=== PATIENT | female | born 1965 | race Caucasian/White ===

== ENCOUNTER 2024-02-23 09:30 | Emergency (ER) | payer OTHER, SELFPAY ==
--- NOTE | 2024-02-23 10:42 | ED.GENMED ---
History of Present Illness
General
Chief Complaint: Abdominal Pain
Source: patient
Time Seen by Provider: 02/23/24 10:29
Travel History
Have you had any contact with someone who has COVID-19?: No
Do you have any symptoms of coronavirus? Fever > 100 degrees, chills, cough, shortness of breath, sore throat, loss of taste or smell, muscle aches, or headache?: No
History of Present Illness
History of Present Illness:
59-year-old female with past medical history of hypertension presenting to the emergency department for evaluation of left lower quadrant abdominal pain for about 3 weeks describing the sensation to be a dull cramping achy sensation with a feeling
of being bloated. Patient went to her [facility] who wanted the patient to obtain an ultrasound however patient was unable to schedule this until March at [place]. She contacted her GI physician who recommended that patient attempt a liquid diet which
she states she has done 2 days of a started to feel little worse which is what prompted her to come to the ER today. Has not had any fevers, chills, rigors, nausea, vomiting, bowel changes or urinary symptoms. She notes a history of IBS and has
been on a peppermint supplement and Bentyl but she states normally these would help in an IBS flare but it has not helped at all during these 3 weeks. Last colonoscopy around 4 years ago and patient believes she had diverticulosis but no polyps.
Social history noncontributory.
Past History
Past History
ED Past Medical History: HTN and Hypercholesterolemia
ED Past Surgical History: and Orthopedic
Social History
Tobacco: Non-smoker
Alcohol: Occasional
Drug: None
Personal:
Living: with family
Employment: Employed
Review of Systems
Review of Systems
All Other Systems: ROS reviewed and negative except as documented in HPI and ROS
Phy Exam
Physical Exam
Physical Exam:
GENERAL: Alert , in no apparent distress
EYE: clear conjunctiva b/l
HEAD: NCAT
ENT: o/p clr, mmm.
CARDIAC: Regular rate and rhythm .
LUNGS: Clear breath sounds bilaterally, no acute respiratory distress, no wheezes/rales/rhonchi
ABDOMEN: Soft, without focal tenderness, no r/g, no cvat, negative De La Garza sign, no tenderness at McBurney's point
NEUROLOGICAL: Alert and oriented
SKIN: Warm and dry, skin intact.
MUSCULOSKELETAL: well perfused.
PSYCH: Normal and appropriate interaction.
Scores
Heart Failure Risk
Heart Failure Risk Score: Not Applicable
Heart Score for Chest Pain Patients
STEMI patient?: Not applicable
Withdrawal Assessment of Alcohol
Withdrawal Assessment Completed?: Not applicable
Course
Orders/Labs/Results
Orders:
Orders
02/23/24 10:41
CT Abd/pelvis W Iv Cont Urgent
Comment:
Reason For Exam: left sided abd pain, hx diverticulosis
02/23/24 10:46
Ketorolac [Toradol] 30 mg IV NOW STA
02/23/24 11:33
Complete Blood Count/With Diff Urgent
Comprehensive Metabolic Panel Urgent
Lipase Urgent
Urinalysis Reflex To Culture Urgent
Date Specimen was Collected: 02/23/24
Time Specimen was Collected: 11:09
Urine Microscopic Reflex Cult Urgent
Abnormal Lab Results
02/23/24
11:33
RBC 4.09 L 10^6/uL
(4.20-5.40)
MCH 33.3 H pg
(27.0-31.0)
Glucose 100 H mg/dl
(70-99)
Urine Ketones Trace A
(Negative)
Ur Occult Blood Reflex Trace A
(Negative)
02/23/24 11:33
02/23/24 11:33
Vital Signs
Initial and Last Documented VS:
Initial Vital Signs
Temp Pulse Resp Pulse Ox
99.5 F 84 16 100
02/23/24 09:32 02/23/24 09:32 02/23/24 09:32 02/23/24 09:32
Last Documented Vital Signs
Temp Pulse Resp BP Pulse Ox
99.5 F 70 16 143/76 98
02/23/24 09:32 02/23/24 14:01 02/23/24 14:01 02/23/24 14:01 02/23/24 14:01
MDM/Problems Addressed
Differential Diagnosis Includes:
Diverticulitis, renal/ureteral colic, GERD/gastritis, pancreatitis
MDM/Problems Addressed:
59-year-old female presenting to the emergency department for evaluation of left lower quadrant abdominal pain x 3 weeks. Has been seen by primary care, [facility] and her GI without any relief. Patient did tell me that her primary care thought symptoms
were related to more of a muscular etiology as she did feel the pain into her back somewhat at onset and was given a Medrol Dosepak which did not give her any relief other than some mild relief in her lower back. I doubt a lumbar/muscular etiology.
Diverticulitis high on exam given known history of diverticulosis. Will check labs and CT imaging. Pain control with Toradol.
*Radiology
Radiology exam reviewed: radiology read reviewed
*Critical Care Note
Total Time (30-74mins, 75-104mins- exclusive of procedures): Not Applicable
Comment
Comment:
12:18 PM -patient noting Toradol took the edge off of her pain. She is resting comfortably. Awaiting CT scan.
Patient Management
Escalation/DeEscalation of care consider admission/obs:
Patient CT scan without any evidence for acute pathology. She does note that she has had similar pain in the past with no specific etiology. At this time patient is relatively pain-free, no fever, no leukocytosis. Stable for discharge home and
continued outpatient management.
ED Attending Note
-
Portions of this chart may have been created with voice recognition software.� Occasional wrong word or��sound alike� substitutions may have occurred due to the inherent limitations of voice recognition software.
Discharge Plan
Departure
Patient Disposition: Home (Routine Discharge)
Date of Disposition: 02/23/24
Time of Disposition: 13:54
Patient with high blood pressure during this ER visit?: No
Discharge Problem:
Abdominal pain
Instructions: Abdominal Pain
Prescriptions:
No Action
ciprofloxacin HCl [Cipro] 500 mg tablet
500 mg PO BID Qty: 14 0RF
ondansetron 8 mg tablet,disintegrating
8 mg PO TID PRN (Reason: nausea and vomiting) Qty: 20 0RF
phenazopyridine [Pyridium] 200 mg tablet
200 mg PO TID PRN (Reason: pain) Qty: 10 0RF
oxycodone 5 mg tablet
5 mg PO Q4H PRN (Reason: pain) Qty: 14 0RF
amoxicillin-pot clavulanate 875-125 mg tablet
1 tab PO BID Qty: 20 0RF
Referrals:
Manpreet Jasso MD [Family Provider] -
Interventions
Interventions:
*Risk Screen - Suicide Last Done: 02/23/24 12:02
*General Assessment Last Done: 02/23/24 12:02
*Neglect/Abuse Screening Last Done: 02/23/24 12:02
ED- Fall Risk Assessment Last Done: 02/23/24 12:02
*ED COVID-19 Vaccine History Last Done: 02/23/24 12:02
*Nursing Disposition Last Done: 02/23/24 13:55
[facility]-Ux[facility] Assessment Last Done: 02/23/24 12:02
Discharge Date and Time
Discharge Date/Time: 02/23/24 13:55
Print Language: BENGALI
[2024-02-23] MEDS: TORADOL 30 MG IV (11:33)
[2024-02-23 11:54] LABS: % Basophils 0.4 % (0-2); % Eosinophils 1.2 % (0-6); % Immature Granulocytes 0.2 % (0-0.5); % Lymphocytes 25.3 % (20.5-51.1); % Monocytes 8.8 % (1.7-9.3); % Neutrophils 64.1 % (42.2-75.2); Absolute Eosinophils 0.1 10^3/uL (0-0.7); Absolute Lymphocytes 1.3 10^3/uL (1.2-3.4); Absolute Monocytes 0.4 10^3/uL (0.1-0.6); Absolute Neutrophils 3.2 10^3/uL (1.4-6.5); Hematocrit 40.5 % (37.0-47.0); Hemoglobin 13.6 g/dL (12.0-16.0); Mean Corp Hgb Conc. 33.6 g/dL (33.0-37.0); Mean Corpuscular Hgb 33.3 pg (27.0-31.0); Mean Platelet Volume 8.3 fL (7.4-10.4); Nucleated Red Blood Cells % 0 %; Platelet Count 289 10^3/uL (130-400); Red Blood Cell Count 4.09 10^6/uL (4.20-5.40); Red Cell Dist. Width 11.9 % (11.5-14.5)
[2024-02-23 12:03] LABS: ALT (SGPT) 31 U/L (0-35); AST (SGOT) 26 U/L (14-36); Albumin 4.8 g/dl (3.5-5.0); Alkaline Phosphatase 62 U/L (38-126); Blood Urea Nitrogen 7 mg/dl (7-17); Carbon Dioxide 28 mmol/L (22-30); Chloride 102 mmol/L (98-107); Glucose 100 mg/dl (70-99); Lipase 126 U/L (23-300); Potassium 4.5 mmol/L (3.5-5.1); Sodium 138 mmol/L (135-145); Total Bilirubin 0.8 mg/dl (0.2-1.3); Total Protein 7.2 g/dl (6.3-8.2); eGFR > 60.00
[2024-02-23 12:20] LABS: Urine Albumin Negative (Neg - Trace); Urine Bilirubin Negative (Negative); Urine Character Clear (Clear); Urine Color Yellow; Urine Glucose Negative (Negative); Urine Ketone Trace (Negative); Urine Leukocyte Negative (Negative); Urine Nitrite Negative (Negative); Urine Occult Blood Trace (Negative); Urine Specific Gravity 1.005 (<1.030); Urine Urobilinogen Negative (Neg - 1+); Urine pH 6.5 (5.0-9.0)
[2024-02-23 13:06] LABS: Urine Red Blood Cell 0-2 /HPF (0-2); Urine Squamous Cell 0-2 /LPF (Few); Urine White Cell 0-2 /HPF (0-5)
[2024-02-23 14:01] VITALS: BP 143/76
== END 2024-02-23 13:55 | disposition home or self-care (01) ==
LOC: EMR 09:30
PROVIDERS: Physician Assistant Medical; EMERGENCY PHYSICIAN Student in an Organized Health Care Education/Training Program; FAMILY PHYSICIAN Internal Medicine
DX: R10.9 Unspecified abdominal pain (principal); I10 Essential (primary) hypertension; E78.00 Pure hypercholesterolemia, unspecified; K58.9 Irritable bowel syndrome, unspecified
CPT/HCPCS: 99284; 96374; 74177; 80053; 81003; 81015; 83690; 85025; Q9967

== ENCOUNTER 2024-04-03 21:22 | Emergency (ER) | payer OTHER, SELFPAY ==
[2024-04-03 21:25] VITALS: BP 169/98
[2024-04-03 22:48] VITALS: BMI 26.3
--- NOTE | 2024-04-03 22:48 | ED.GENMED ---
History of Present Illness
General
Chief Complaint: Abdominal Symptoms
Source: patient
Exam Limitations: none
Time Seen by Provider: 04/03/24 22:01
History of Present Illness
History of Present Illness:
This is a 59 year old female that comes in with c/o left sided abd pain. States that she has had pain all day. States that she also had some lower back pain but thought this was due to moving some heavy stuff on the weekend. States that she took a
Flexeril this morning but this did not help. States that the pain just kept getting worse. States that she is also to have a Transvaginal US at [place] tomorrow. States that she has urinary burning. Denies any fever, chills, chest pain, SOB,
nausea, vomiting, diarrhea, headache, dizziness.
Past History
Past History
ED Past Medical History: HTN, Hypercholesterolemia and Other (Migraine, Renal calculus)
ED Past Surgical History: and Orthopedic (Left 5th finger surgery, )
Social History
Tobacco: Former smoker
Alcohol: Occasional
Drug: None
Personal:
Living: with family
Employment: Employed
Review of Systems
Review of Systems
All Other Systems: ROS reviewed and negative except as documented in HPI and ROS
Constitutional: Reports no symptoms; Denies fever or chills
EENT: Reports no symptoms
Respiratory: Reports no symptoms; Denies cough or trouble breathing
Cardiac: Reports no symptoms; Denies chest pain
ABD/GI: Reports abdominal pain (Left sided); Denies nausea, vomiting or diarrhea
: Reports dysuria; Denies frequency or urgency
Musculoskeletal: Reports back pain (Low back pain)
Skin: Reports no symptoms
Neurological: Reports no symptoms; Denies dizzy or headache
Psychiatric: Reports no symptoms
Phy Exam
General Physical Exam
General Presentation: no apparent distress
General age: appears stated age
General Skin: warm and dry
General Habitus: normal
General Mental: alert
General Hydration: appears well hydrated
ENT Exam
ENT Exam: TM's normal, pharynx normal and neck supple
Eye Exam
Eye Exam: EOMI
Cardiovascular Exam
Cardiovascular Exam: regular rate/rhythm, no edema, no murmur and normal peripheral pulses
Pulmonary Exam
Pulmonary Exam: lungs clear, no respiratory distress, no rales, chest non tender, no crackles, no rhonchi, no wheezing and no cough
Gastrointestinal Exam
Gastrointestinal Exam: normal bowel sounds, soft, no organomegaly, no pulsatile mass, non distended and tender (Left lower abd tenderness with palpation)
Musculoskeletal Exam
Musculoskeletal Exam: full ROM and no edema
Skin Exam
Skin Exam: normal color, warm/dry, no rash and no petechia
Psychiatric Exam
Psychiatric Exam: normal mood/affect
Course
Orders/Labs/Results
Orders:
Orders
04/03/24 22:49
Complete Blood Count/With Diff Urgent
Comprehensive Metabolic Panel Urgent
04/03/24 22:53
Urinalysis Reflex To Culture Urgent
Date Specimen was Collected: 04/03/24
Time Specimen was Collected: 22:50
Urine Microscopic Reflex Cult Urgent
04/03/24 23:06
Ketorolac [Toradol] 30 mg IV NOW STA
04/03/24 23:07
CT Abd/pelvis W Iv Cont Urgent
Comment:
Reason For Exam: Left sided abd pain
Abnormal Lab Results
04/03/24 04/03/24
22:49 22:53
RBC 3.48 L 10^6/uL
(4.20-5.40)
Hgb 11.7 L g/dL
(12.0-16.0)
Hct 33.1 L %
(37.0-47.0)
MCH 33.6 H pg
(27.0-31.0)
Absolute Monos (auto) 0.9 H 10^3/uL
(0.1-0.6)
Lymphocytes % 20.4 L %
(20.5-51.1)
Monocytes % 9.9 H %
(1.7-9.3)
Glucose 100 H mg/dl
(70-99)
Ur Occult Blood Reflex Trace A
(Negative)
Leukocyte Esterase Rfl Trace A
(Negative)
Urine Bacteria (Reflex) Few A
(Negative)
04/03/24 22:49
04/03/24 22:49
H/H very slightly low. Glucose nonfasting. Urine negative for infection.
Vital Signs
Initial and Last Documented VS:
Initial Vital Signs
Temp Pulse Resp BP Pulse Ox
98.6 F 86 16 169/98 99
04/03/24 21:25 04/03/24 21:25 04/03/24 21:25 04/03/24 21:25 04/03/24 21:25
Last Documented Vital Signs
Temp Pulse Resp BP Pulse Ox
98.6 F 71 18 141/72 96
04/03/24 21:25 04/03/24 23:00 04/03/24 23:00 04/03/24 23:00 04/03/24 23:00
MDM/Problems Addressed
Differential Diagnosis Includes:
Diverticulitis, renal calculus, UTI
MDM/Problems Addressed:
This is a 59 year old female that comes in with c/o left sided abd pain. States that this has continued to get worse all day. State that she took Flexeril this morning and this did not help.
Will get labs. CT scan, Give IV fluids and medicate for pain.
back into see patient. Explained that her blood work is normal along with the CT of the abd/pelvis. Urine is negative for infection. This is most likely coming form the back. Encouraged patient to use Tylenol 1000mg every 6 hours for pain and
alternate with Ibuprofen 600mg every 6 hours with food for pain. Heat or ice to the back which ever makes your feel better. Follow up with the family doctor. Return with any concerns.
Chronic conditions affecting care:
history of Renal calculus
Acute Exacerbation and/or Progression of Chronic Illness:
NA
*Radiology
Radiology exam reviewed: radiology read reviewed (CT-[facility]- No acute abnormality within the abdomen or pelvis. No bowel obstruction. Normal gallbladder and appendix. Incidentals: Fecalized loops of small bowel suggestive of slow transit. No
obstructive uropathy. No hepatic or pancreatic mass. No abdominal aortic aneurysm No acute osseous ) and other (CT cont- no acute osseous abnormality. No acute abnormality within the visualized lungs. No acute abnormality within the visualized soft
tissues. )
*Pulse Oximetry
Patient hypoxic: no
*EKG
Interpreted by ED Provider?: NA
Rate: EKG- N/A
*Radiological Technician Interpretation
Rate: Radiological Technician- N/A
*Critical Care Note
Total Time (30-74mins, 75-104mins- exclusive of procedures): Not Applicable
ED Attending Note
-
Portions of this chart may have been created with voice recognition software.� Occasional wrong word or��sound alike� substitutions may have occurred due to the inherent limitations of voice recognition software.
Discharge Plan
Departure
Patient Disposition: Home (Routine Discharge)
Date of Disposition: 04/04/24
Time of Disposition: 00:32
Patient with high blood pressure during this ER visit?: Yes
Condition: Good
Covid-19: Not Applicable
Discharge Problem:
Back pain
Instructions: Low Back Pain (DC), BLOOD PRESSURE
Prescriptions:
No Action
ciprofloxacin HCl [Cipro] 500 mg tablet
500 mg PO BID Qty: 14 0RF
ondansetron 8 mg tablet,disintegrating
8 mg PO TID PRN (Reason: nausea and vomiting) Qty: 20 0RF
phenazopyridine [Pyridium] 200 mg tablet
200 mg PO TID PRN (Reason: pain) Qty: 10 0RF
oxycodone 5 mg tablet
5 mg PO Q4H PRN (Reason: pain) Qty: 14 0RF
amoxicillin-pot clavulanate 875-125 mg tablet
1 tab PO BID Qty: 20 0RF
Referrals:
Manpreet Jasso MD [Family Provider] - Call in 1-3 days for appt
Activity Restrictions/Additional Instructions:
As discussed, your blood work is normal and your urine is negative for infection. Your CT is negative for any acute process. This is most likely due to your back discomfort as the nerves wrap around to the abd. Please use Tylenol 1000mg every 6
hours for pain and alternate with Ibuprofen 600mg every 6 hours with food. You my also use heat or ice to the back which ever makes you feel better. Follow up with the family doctor for recheck. Please continue with your 8-8oz glasses daily. IF YOU
HAVE INCREASED OR CHANGING PAIN, OR YOU HAVE ANY OTHER CONCERNS PLEASE RETURN TO THE EMERGENCY ROOM .
Interventions
Interventions:
*Risk Screen - Suicide Last Done: 04/03/24 23:00
*General Assessment Last Done: 04/03/24 21:25
*Neglect/Abuse Screening Last Done: 04/03/24 23:00
ED- Fall Risk Assessment Last Done: 04/03/24 22:58
HI-Wtzyma-Bmnbyxrugx Assessment Last Done: 04/03/24 22:57
Discharge Date and Time
Print Language: CROATIAN
[2024-04-03 23:00] VITALS: BP 141/72
[2024-04-03 23:00] LABS: Urine Albumin Negative (Neg - Trace); Urine Bilirubin Negative (Negative); Urine Character Clear (Clear); Urine Color Yellow; Urine Glucose Negative (Negative); Urine Ketone Negative (Negative); Urine Leukocyte Trace (Negative); Urine Nitrite Negative (Negative); Urine Occult Blood Trace (Negative); Urine Urobilinogen Negative (Neg - 1+)
[2024-04-03 23:00] LABS: % Basophils 0.6 % (0-2); % Eosinophils 1.7 % (0-6); % Immature Granulocytes 0.2 % (0-0.5); % Lymphocytes 20.4 % (20.5-51.1); % Monocytes 9.9 % (1.7-9.3); % Neutrophils 67.2 % (42.2-75.2); Absolute Basophils 0.1 10^3/uL (0-0.2); Absolute Eosinophils 0.2 10^3/uL (0-0.7); Absolute Lymphocytes 1.8 10^3/uL (1.2-3.4); Absolute Monocytes 0.9 10^3/uL (0.1-0.6); Absolute Neutrophils 5.8 10^3/uL (1.4-6.5); Hematocrit 33.1 % (37.0-47.0); Hemoglobin 11.7 g/dL (12.0-16.0); Mean Corp Hgb Conc. 35.3 g/dL (33.0-37.0); Mean Corpuscular Hgb 33.6 pg (27.0-31.0); Mean Corpuscular Volume 95.1 fL (81.0-99.0); Mean Platelet Volume 8.5 fL (7.4-10.4); Nucleated Red Blood Cells % 0 %; Platelet Count 235 10^3/uL (130-400); Red Blood Cell Count 3.48 10^6/uL (4.20-5.40); Red Cell Dist. Width 12.3 % (11.5-14.5); White Blood Cell Count 8.7 10^3/uL (4.8-10.8)
[2024-04-03 23:11] LABS: Urine Bacteria Few (Negative); Urine Red Blood Cell 0-2 /HPF (0-2); Urine Squamous Cell 0-2 /LPF (Few); Urine White Cell 0-2 /HPF (0-5)
[2024-04-03 23:20] LABS: ALT (SGPT) 17 U/L (0-35); AST (SGOT) 23 U/L (14-36); Albumin 4.5 g/dl (3.5-5.0); Alkaline Phosphatase 105 U/L (38-126); Blood Urea Nitrogen 12 mg/dl (7-17); Calcium 9.7 mg/dl (8.4-10.2); Carbon Dioxide 26 mmol/L (22-30); Chloride 105 mmol/L (98-107); Estimated Creatinine Clearance 86 ml/min; Glucose 100 mg/dl (70-99); Potassium 3.9 mmol/L (3.5-5.1); Sodium 138 mmol/L (135-145); Total Bilirubin 0.4 mg/dl (0.2-1.3); Total Protein 6.5 g/dl (6.3-8.2); eGFR > 60.00
[2024-04-03] MEDS: TORADOL 30 MG IV (23:23)
== END 2024-04-04 00:44 | disposition home or self-care (01) ==
LOC: EMR 21:22
PROVIDERS: Clinical Nurse Specialist Family Health; EMERGENCY PHYSICIAN Student in an Organized Health Care Education/Training Program; FAMILY PHYSICIAN Internal Medicine
DX: M54.50 Low back pain, unspecified (principal); R10.9 Unspecified abdominal pain; R30.0 Dysuria; I10 Essential (primary) hypertension; E78.00 Pure hypercholesterolemia, unspecified; G43.909 Migraine, unspecified, not intractable, without status migrainosus; Z87.442 Personal history of urinary calculi; Z87.891 Personal history of nicotine dependence; Z88.6 Allergy status to analgesic agent
CPT/HCPCS: 99285; 96374; 74177; 80053; 81003; 81015; 85025; Q9967

== ENCOUNTER → 2024-10-12 09:24 | Outpatient (REF) | payer OTHER, SELFPAY | LOC: RAD 09:24 | PROVIDERS: ATTENDING PHYSICIAN Surgery Vascular Surgery; FAMILY PHYSICIAN Internal Medicine | DX: I65.22 Occlusion and stenosis of left carotid artery (principal) | CPT/HCPCS: 93880 ==